=== PATIENT | female | born 1960 | race Caucasian/White ===

== ENCOUNTER → 2018-12-05 | Outpatient (CLI) | payer MEDICARE ==
--- NOTE | 2018-12-05 13:47 | Diagnostic Imaging Report ---
Exam: Sacrococcygeal series dated 12/05/2018 at 9:24 AM History: Pain Comparison: None available Findings: No fracture or dislocation is noted. Normal bony mineralization. Linear tubular lucency involving the distal aspect of the sacrum in the midline is indeterminant. Findings could be secondary to a Tarlov cyst, meningocele or postsurgical change. CT scan of the sacrum for further characterization would be of benefit. Impression: Midline tubular lucency of the distal aspect of the sacrum. Signed by: Dr. Bc Orona DO on 12/05/2018 1:43 PM
== END ==
LOC: MAMMO 08:42
PROVIDERS: ATTEND Internal Medicine
DX: Z12.31 Encounter for screening mammogram for malignant neoplasm of breast (principal); M43.07 Spondylolysis, lumbosacral region
CPT/HCPCS: 72220; 77067